=== PATIENT | female | born 1970 | race Caucasian/White ===

== ENCOUNTER 2021-11-25 14:04 | Outpatient (REF) | payer OTHER, SELFPAY ==
[2021-11-25 15:07] LABS: Influenza A PCR NEGATIVE (Negative); Influenza B PCR NEGATIVE (Negative); Resp Syncy Virus RNA Qual PCR NEGATIVE (Negative); SARS COV2 PCR INHOUSE NEGATIVE (Negative)
== END 2021-11-25 14:05 | disposition home or self-care (01) ==
LOC: HO.LNP 14:04
PROVIDERS: Visit Provider Nurse Practitioner Family
DX: Z20.822 Contact with and (suspected) exposure to COVID-19 (principal)
CPT/HCPCS: 0241U

== ENCOUNTER 2021-12-10 14:48 | Outpatient (REF) | payer OTHER, SELFPAY ==
--- NOTE | ~2021-12-10 | XR_ITS ---
EXAMINATION: XR LUMBOSACRAL SPINE CLINICAL INFORMATION: Right-sided sciatica. COMPARISON: None TECHNIQUE: Three views of the lumbosacral spine. FINDINGS: There is normal lumbar lordosis. The vertebral heights and alignment is normal. There is loss of L4-L5 and L5/S1 disc heights. Rest the disc heights are normal. No visible acute fracture, dislocation or lytic process seen. The paravertebral soft tissues are normal. The SI joints are symmetric and normal. XR/XR lumbar spine 2-3V IMPRESSION: Mild degenerative disc changes L4-L5 and L5-S1 disc levels. No visible acute fracture or dislocation seen.
== END 2021-12-10 14:49 | disposition home or self-care (01) ==
LOC: HO.HMGCLDS 14:48
PROVIDERS: PCP Family Medicine; Visit Provider Orthopaedic Surgery Sports Medicine
DX: M54.31 Sciatica, right side (principal)
CPT/HCPCS: 72100

== ENCOUNTER 2021-12-20 11:19 | Outpatient (REF) | payer OTHER, SELFPAY ==
[2021-12-20 14:20] LABS: Alanine Aminotransferase 22 U/L (0-31); Albumin Level 4.4 g/dL (3.5-5.0); Alkaline Phosphatase 75 U/L (39-117); Anion Gap 14 (12-20); Aspartate Amino Transferase 24 U/L (5-31); Bilirubin Total 1.2 mg/dL (0.0-1.0); Blood Urea Nitrogen 12 mg/dL (9-16); Calcium 9.5 mg/dL (8.4-10.2); Carbon Dioxide 25 mmol/L (22-29); Chloride 105 mmol/L (96-108); Cholesterol 179 mg/dL; Estimated Glomerular Filt Rate 51; Glucose Fasting 82 mg/dL (60-99); HDL Cholesterol 49 mg/dL; LDL Cholesterol Calculated 111 mg/dl; Potassium 4.2 mmol/L (3.3-5.1); Sodium 140 mmol/L (135-145); Triglycerides 99 mg/dL
[2021-12-20 14:34] LABS: TSH reflex Free T4 1.43 uIU/mL (0.32-4.0)
== END 2021-12-20 11:20 | disposition home or self-care (01) ==
LOC: HO.WFDLDS 11:19
PROVIDERS: Visit Provider Family Medicine
DX: Z00.00 Encounter for general adult medical examination without abnormal findings (principal)
CPT/HCPCS: 36415; 80053; 80061; 84443

== ENCOUNTER 2022-01-04 14:51 | Outpatient (REF) | payer OTHER, SELFPAY ==
--- NOTE | ~2022-01-04 | MM_ITS ---
EXAMINATION: MM SCREENING DIGITAL BREAST TOMOSYNTHESIS, BILATERAL CLINICAL INFORMATION: Screening. Asymptomatic. Prior [id number] mammography currently unavailable. The lifetime risk of breast cancer based on the Tyrer-Cuzick Model is 19%. COMPARISON: None. TECHNIQUE: Digital breast tomosynthesis is performed in both the craniocaudal and mediolateral oblique views along with computer-aided detection (CAD). Synthesized 2D images are generated from the tomosynthesis. FINDINGS: There are scattered areas of fibroglandular density (ACR BI-RADS breast composition Category b). There are no significant masses, abnormal calcifications, or other abnormalities. The axilla and skin contours are unremarkable. Radiology department staff will attempt to retrieve prior [id number] mammography to allow for comparison in an addendum report. MM/MM tomosynthesis screening BI IMPRESSION: No mammographic evidence of malignancy. ASSESSMENT: BI-RADS 1: Negative RECOMMENDATION: 1. Routine annual mammography screening. 2. Radiology department staff will attempt to retrieve prior mrj-oi-[id number] mammography to allow for comparison in an addendum report. This patient's information was entered into a reminder system with a target due date for their next mammogram.
== END 2022-01-04 14:52 | disposition home or self-care (01) ==
LOC: HO.MAMMO 14:51
PROVIDERS: PCP Family Medicine; Visit Provider Family Medicine
DX: Z12.31 Encounter for screening mammogram for malignant neoplasm of breast (principal)
CPT/HCPCS: 77063; 77067

== ENCOUNTER 2022-10-04 11:21 | Outpatient (AMB) | payer OTHER, SELFPAY ==
--- NOTE | 2022-10-04 11:30 | MHC.PC.OV ---
Vital Signs 10/04/22 11:31 Height 5 ft 9.3 in Weight 176 lb 8 oz BMI 25.8 BP 118/74 Blood Pressure Location Lt brachial Position Sitting Respiration 12 Pulse 97 Pulse Source Pulse Oximeter Temp 97.8 F Temp Source Temporal Artery Scan Pulse Oximetry (%) 99 Oxygen Delivery Method Room Air Intake Visit Reasons: Sore throat Intake Note: Patient states that it has been almost 2 weeks since shes had the symptoms. Patient states that shes been experiencing ear pain, congestion in the nose, pressure around eyes, eye irritation, mild headaches. 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 Accompanied by: Self / Same As Patient Allergies No Known Allergies Allergy (Verified 10/04/22 11:53) Medication List - Last Reconciled 10/04/22 by Mandie Blanco CNP famotidine 20 mg PO DAILY hydroxyzine HCl 12.5 - 50 mg PO TID PRN lamotrigine 75 mg PO DAILY vilazodone 10 mg PO DAILY vilazodone 20 mg PO DAILY zolpidem 10 mg PO BEDTIME PRN Tobacco use date assessed: 10/04/22 Dental Screening Dental Screen Date: 10/04/22 Did you have a dental visit in the last 12 months?: Yes Did you have a dental problem in the last 6 months where you did not have access to dental care?: No Was dental information given to patient?: Patient has dentist HPI HPI Comments History of Present Illness Details 52-year-old female presents with complaints of sore throat. She reports associated bilat ear pain, pressure on the eyes, eye irritation, and mild generalized headaches. Her symptoms have been ongoing for the past 2 weeks. She denies fever, chills, body aches, fatigue, or weakness. She denies visual disturbances. 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 Current occupational exposures/hazards: No Cognitive needs: No Hearing needs: No Vision needs: No Review of Systems Const Details: Const Denies chills, Denies fatigue, Denies fever(s), Denies headache(s) and Denies weakness ENT Reports as per HPI Card Denies chest pain, Denies lightheadedness, Denies dyspnea and Denies other (Palpitations) Resp Denies cough, Denies dyspnea, Denies wheezing and Denies other ( shortness of breath) GI Denies abdominal pain, Denies melena, Denies hematochezia, Denies change in bowel habits, Denies dyspepsia and Denies nausea Denies hematuria and Denies dysuria Musc Denies abnormal gait, Denies myalgias, Denies arthralgias, Denies numbness and Denies tingling Skin/Breast Denies rash, Denies unusual bruising and Denies wounds Neuro Denies abnormal gait, Denies dizziness, Denies headache(s), Denies memory loss, Denies numbness, Denies Sensory deficit (Neuro), Denies tingling and Denies weakness Psych Denies anxiety and Denies depression Endo Denies fatigue Aller/Immun Denies wheezing Physical exam (Primary Care) Vital Signs: Last Vital Signs Temp 97.8 F 10/04/22 11:31 Pulse 97 10/04/22 11:31 Resp 12 10/04/22 11:31 BP 118/74 10/04/22 11:31 Pulse Ox 99 10/04/22 11:31 Oxygen Delivery Method Room Air 10/04/22 11:31 BMI result Body Mass Index 25.8 Tobacco/Smoking Status: Tobacco use Status Tobacco use date assessed 10/04/22 10/04/22 11:44 Patient Tobacco Use Status Never used Tobacco 10/04/22 11:44 e-Cigarette/Vaping Use Never Used 10/04/22 11:44 Const Other: General: no acute distress and well developed Nutritional Appearance: well nourished Orientation/consciousness: patient oriented x3 HENMT Head is normocephalic Left TM with effusion and mild erythema, normal ear canal. Right ear canal and TM is normal Nasal turbinates with significant erythema Oropharynx is moist with significant erythema, no patches or exudate, no tonsillar swelling Tender frontal and maxillary sinuses No auricular or cervical lymphadenopathy Eyes General: appearance normal, both eyes and all related structures Pupils: Equal, round and reactive pupils present EOM: EOMs intact bilaterally Resp Effort & Inspection: normal respiratory effort Auscultation: clear to auscultation bilaterally Cardio Rate: regular rate Rhythm: regular rhythm Heart sounds: S1 normal heart sound present, S2 normal heart sound present, no gallops, no murmurs and no rubs GI Palpation (GI): No Abdominal aortic bruit present, Soft to palpation, nontender, No hepatosplenomegaly present and No Rebound tenderness present Auscultation: normal bowel sounds General: Yes no CVA tenderness Back/Spine/Pelvis Back: no CVA tenderness Cervical Spine: cervical ROM normal and No Cervical spine tenderness Thoracic/Lumbar Spine: thoraco-lumbar ROM normal, No pain with thoraco-lumbar ROM, No thoracic spinal tenderness and No lumbar spinal tenderness Extrem General: Yes normal to inspection, No edema and No calf tenderness Skin General: warm and dry. Normal skin color. Normal skin turgor Lesions: no lesions Rashes: no rashes Trauma: no lacerations or abrasions Wounds: no wounds Nails: normal Neuro General: patient oriented x3, gait normal and no focal neuro deficit Cranial nerves: Yes Equal, round and reactive pupils present Cognition (Neuro): normal cognition Gait exam (Neuro): Normal gait present Sensory Exam: No Sensory deficit (Neuro) Psych Affect: normal affect Assessment and Plan Assessment & Plan (1) Left otitis media with effusion: Code(s): H65.92 - Unspecified nonsuppurative otitis media, left ear Plan: Left TM with effusion and mild erythema Amoxicillin ordered. Take as prescribed May take Tylenol ibuprofen for pain, fever, or discomfort Adequate hydration encouraged Follow-up with worsening or new symptoms Verbalized understanding and agreed with treatment plan. (2) Acute sinus infection: Code(s): J01.90 - Acute sinusitis, unspecified Plan: Tender frontal and maxillary sinuses Plan as above (3) Acute pharyngitis: Code(s): J02.9 - Acute pharyngitis, unspecified Plan: Rapid strep test is negative Oropharynx is moist with significant erythema, no patches or exudate, no tonsillar swelling Adequate hydration encouraged May take Tylenol or Motrin for pain or discomfort Follow-up with worsening or new symptoms Verbalized understanding and agreed with treatment plan Orders: Orders AMB Rapid Strep Screen Today Z13.9 - Encounter for screening, unspecified Medications: New amoxicillin 875 mg PO Q12H 7 days 14 tabs 0RF Coding Level of Care Code Est Pt Level 3 (08377) Diagnoses Left otitis media with effusion H65.92 Acute sinus infection J01.90 Acute pharyngitis J02.9 Time Spent (min) 25
[2022-10-04 11:31] VITALS: BP 118/74; PULSE 97; RESP 12; TEMP 36.6; O2SAT 99; BMI 25.8
== END 2022-10-04 12:14 | disposition home or self-care (01) ==
PROVIDERS: PCP Family Medicine; Visit Provider Family Medicine
DX: H65.92 Unspecified nonsuppurative otitis media, left ear (principal); J01.90 Acute sinusitis, unspecified; J02.9 Acute pharyngitis, unspecified
CPT/HCPCS: 87880; 99213

== ENCOUNTER → 2023-08-31 08:00 | Outpatient (BNV) | payer OTHER, SELFPAY | PROVIDERS: Visit Provider Psychiatry & Neurology Psychiatry | DX: F43.10 Post-traumatic stress disorder, unspecified (principal); F39 Unspecified mood [affective] disorder; E22.1 Hyperprolactinemia | CPT/HCPCS: 90792; 99213; 99214 ==

== ENCOUNTER 2023-09-03 09:33 | Outpatient (REF) | payer OTHER, SELFPAY ==
[2023-09-03 10:09] LABS: MANUAL DIFF FLAG NO
--- NOTE | 2023-09-03 10:16 | ECG_ITS ---
Test Reason : F33.2 F41.0 N95.1 R/O QTC FOR MED CONSIDERATIONS Blood Pressure : / mmHG Vent. Rate : 075 BPM Atrial Rate : 075 BPM P-R Int : 162 ms QRS Dur : 080 ms QT Int : 378 ms P-R-T Axes : 072 068 052 degrees QTc Int : 422 ms Poor data quality, interpretation may be adversely affected Normal sinus rhythm Normal ECG No previous ECGs available Referred By: Amaya Alva Electronically Signed By:INDU ESPARZA MD
[2023-09-03 11:04] LABS: Basophils Absolute Auto 0.1 X10*3/uL (0.0-0.2); Basophils Percent Auto 0.9 % (0-2); Eosinophils Absolute Auto 0.2 X10*3/uL (0.0-0.4); Eosinophils Percent Auto 2.4 % (0-4); Hematocrit 41.9 % (37.0-47.0); Hemoglobin 13.7 g/dl (12.0-16.0); Imm Gran Abs Auto 0.02 X10*3/uL (0.00-0.03); Imm Gran Pct Auto 0.3 % (0.0-0.4); Lymphocytes Percent Auto 27.1 % (20-40); Mean Corpuscular HGB Conc 32.7 g/dl (31.0-35.0); Mean Corpuscular Hemoglobin 28.1 pg (27.0-33.0); Mean Corpuscular Volume 85.9 fL (80.0-98.0); Mean Platelet Volume 11.1 fL (9.4-12.3); Monocytes Absolute Auto 0.5 X10*3/uL (0.1-1.2); Monocytes Percent Auto 7.3 % (2-11); Neutrophils Absolute Auto 4.6 x10*3/uL (2.0-8.3); Platelet Count 252 X10*3/uL (160-400); Red Blood Count 4.88 X10*6/uL (4.20-5.50); Red Cell Distribution Width 12.5 % (11.0-16.0); White Blood Count 7.4 X10*3/uL (4.8-10.8)
[2023-09-03 11:16] LABS: Estimated Average Glucose 100 mg/dL; Hemoglobin A1c % 5.1 % (<6.0)
[2023-09-03 11:21] LABS: Lithium 0.64 mmol/L (0.60-1.20)
[2023-09-03 11:39] LABS: Parathyroid Hormone Intact 36.8 pg/mL (8.7-77.1)
[2023-09-03 11:41] LABS: Erythrocyte Sedimentation Rate 7 MM/HR (0-20)
[2023-09-03 11:54] LABS: Alanine Aminotransferase 49 U/L (0-31); Alkaline Phosphatase 95 U/L (39-117); Anion Gap 15 (12-20); Aspartate Amino Transferase 29 U/L (5-31); Bilirubin Total 0.7 mg/dL (0.0-1.0); Blood Urea Nitrogen 14 mg/dL (9-16); C Reactive Protein 0.48 mg/dL (< or = 0.50); Calcium 9.4 mg/dL (8.4-10.2); Carbon Dioxide 28 mmol/L (22-29); Chloride 103 mmol/L (96-108); Cholesterol 172 mg/dL (<200); Estimated Glomerular Filt Rate 58; Glucose Fasting 92 mg/dL (60-99); HDL Cholesterol 41 mg/dL (>40); Iron 93 mcg/dL (30-160); LDL Cholesterol Calculated 105 mg/dL (<100); Magnesium 2.1 mg/dL (1.6-2.6); Percent Iron Saturation 33 % (15-50); Phosphorus 3.8 mg/dL (2.7-4.5); Potassium 4.2 mmol/L (3.3-5.1); Sodium 142 mmol/L (135-145); Total Iron Binding Capacity 283 mcg/dL (228-428); Total Protein 6.8 g/dL (6.5-8.0); Triglycerides 134 mg/dL (<150); Unsaturated Iron Binding 190 ug/dL
[2023-09-03 12:01] LABS: Ferritin 68 ng/mL (10-250); Free T4 (Free Thyroxine) 0.84 ng/dL (0.71-1.85); Thyroid Stimulating Hormone 1.45 uIU/mL (0.32-4.0); Vitamin D 25-OH Total 36.7 ng/mL (>30)
[2023-09-03 12:07] LABS: Folate 10.1 ng/mL (> or = 4.0); Vitamin B12 461 pg/mL (200-900)
[2023-09-04 11:08] LABS: Thyroglobulin Antibodies <1 IU/mL (< or = 1); Thyroid Peroxidase Antibodies <1 IU/mL (<9)
[2023-09-04 22:59] LABS: Triiodothyronine T3 Total 94 ng/dL (76-181)
[2023-09-04 23:08] LABS: DHEA Sulfate 127 mcg/dL (5-167); Follicle Stimulating Hormone 83.4 mIU/mL; Lutenizing Hormone 35.1 mIU/mL; Prolactin 62.9 ng/mL
[2023-09-07 15:18] LABS: Anti Nuclear Antibody Screen NEGATIVE (NEGATIVE)
[2023-09-07 16:29] LABS: Triiodothyronine T3 Reverse 11 ng/dL (8-25)
[2023-09-08 19:34] LABS: Pregnenolone, LC/MS 33 ng/dL (22-237)
[2023-09-10 18:59] LABS: Progesterone <0.1 ng/mL
[2023-09-11 02:58] LABS: Estradiol Ultra Sensitive 5 pg/mL
[2023-09-14 14:18] LABS: Testosterone, Free 0.7 pg/mL (0.1-6.4); Testosterone, Total 13 ng/dL (2-45)
== END 2023-09-03 09:34 | disposition home or self-care (01) ==
LOC: HO.LAB 09:33
PROVIDERS: PCP Family Medicine; Visit Provider Psychiatry & Neurology Psychiatry
DX: Z13.6 Encounter for screening for cardiovascular disorders (principal); F33.2 Major depressive disorder, recurrent severe without psychotic features; F41.0 Panic disorder [episodic paroxysmal anxiety]; N95.1 Menopausal and female climacteric states
CPT/HCPCS: 36415; 80053; 80061; 80178; 82306; 82607; 82627; 82670; 82728; 82746; 83001; 83002; 83036; 83540; 83735; 83970; 84100; 84143; 84144; 84146; 84402; 84403; 84439; 84443; 84480; 84481; 84482; 85025; 85652; 86038; 86140; 86376; 86800; 93005

== ENCOUNTER → 2023-09-03 10:16 | Outpatient (BNV) | payer OTHER, SELFPAY | PROVIDERS: PCP Family Medicine; Visit Provider Internal Medicine Cardiovascular Disease | DX: F41.0 Panic disorder [episodic paroxysmal anxiety] (principal); F33.2 Major depressive disorder, recurrent severe without psychotic features | CPT/HCPCS: 93010 ==

== ENCOUNTER → 2023-09-12 08:30 | Outpatient (BNV) | payer OTHER, SELFPAY | PROVIDERS: Visit Provider Psychiatry & Neurology Psychiatry | DX: F43.10 Post-traumatic stress disorder, unspecified (principal); F39 Unspecified mood [affective] disorder; E22.1 Hyperprolactinemia | CPT/HCPCS: 90834; 99214 ==

== ENCOUNTER 2023-09-19 08:00 | Outpatient (RCR) | payer OTHER, SELFPAY ==
[2023-08-30 09:32] VITALS: BMI 26.3
[2023-08-30 09:35] VITALS: BP 114/70; PULSE 96; TEMP 36.8
--- NOTE | 2023-08-30 14:09 | PC.ADMIT ---
Patient is a 53 year old female who was referred to PHP by her TMS provider d/t increased depression with passive SI. 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 Patient denied any plans to do this or any intention of acting on her thoughts. She denied any history of suicide attempts or Inpatient LOC. Asked what stops her from acting on her thoughts and she stated, The hope that I can find something find the right med and plug myself in. Thoughts that I have recovered before and can recover again . Patient also stated she does not want to do that to her . I asked patient if we could call he and ask him to lock up her medications and administer them to her as a precaution and she agreed. I called her Elton and he agreed to lock up the medication and administer them to her as a safety precaution until she is feeling better. Patient reports stresses include feeling isolated since moving to [facility] from [place] a few years ago. She does not know anyone in the area and has no supports other that her . 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 When she is not working she is laying down on the couch on her phone doing nothing. She stated she wants to find something to do such as volunteer work to keep herself busy. Patient has a trauma history. See Integrative Assessment for more information. Patient currently is alert and oriented x4. She is calm and cooperative. She presents with depressed mood and tearful affect at times when talking about things related to children as she does not have any children. She feels she has no purpose in life. She was given a copy of her safety plan if needed. She reports she remembers feeling the way she does now when she moved to [place]. She eventually saw improvement with her mood after living in [place] for a while. Patient has tried many different medications however could not tolerate many of them d/t side effects. Medications reconciled with patient, Handle behavioral health paperwork and patient's pharmacy. Patient reports taking medications as prescribed.
--- NOTE | 2023-08-30 17:46 | HO.PHP ---
Client's case has been opened and reviewed in team meeting.
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
--- NOTE | 2023-09-05 14:39 | PC.NURSE ---
Odalis reported feeling Groggy, Nida Mera notified, Odalis was asked if Guanfacine was the medication making her Groggy, she stated Yes, per Dr. Alva Odalis was informed to hold off taking it in the morning, until doctor meets with her tomorrow. Odalis verbalized understanding.
--- NOTE | 2023-09-06 21:51 | P.PNPSP_ITS ---
Subjective Subjective Date of Service: 09/06/23 Reason For Visit: MDD,JOSE,PTSD Interim History: Feeling generally groggy, anxious and depressed. I'm fighting to get through the day Tried olanzapine at different times (was taking in the AM, has tried taking for a few days in the afternoon, and at night). She says she can definitively say it's doing nothing for me . Sleep continues to be difficult, with Ambien she falls asleep easily but is still waking occasionally during the night - without Ambien she is often unable to fall back asleep. She is still tired in the morning regardless of whether she takes the Ambien. She has not noticed any difference with the prazosin at night. Heart rate tends to be elevated, anxious night and day, she continues to endorse a fine tremor. She notices that the guanfacine during the day has some modest effect on the tremor, physically she is calmer, and less shaky not as bad as before , but feels the guanfacine is causing her to feel extremely sleepy during the day and does not feel it's been improving. Sometimes she is able to power through the tiredness, but often feels she is dragging very low energy . Energy has been low for months, but especially low in the past 1-2 months she just lays on the couch for hours, unable to tend to ADLs. Paradoxically she also feels more keyed up , shaky, increased heart rate/racing heart, with elevated HR (according to her watch), which persist at some level all the time, with bursts of anxiety, racing heartbeat, feels borderline panicky, but there is not always a clear indicator or cause. Denies any nicotine or caffeine use. Sleep disturbance at night is difficult to deal with and has been a constant problem. She denies any environmental factors that might be interfering with sleep. Endorses feeling a little hot at night, but this is not too bad. Potentially some flushing but no clear hot flashes. Denies any fever, sweats or chills. 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 She has experienced more rapid weight gain in the past month or so. Looking back she does feel she has had lower energy than the average person her age on and off over the past years. She noted feeling similarly in HS. She chalked it up to PTSD though. 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 She denies dx of fibromylagia or CFS> She admits she has not spoken to her PCP about this. She can not recall her LMP on account of previously being on oral contraception for many years; in fact she has not had a period perhaps as far back as her late 30s when she was started on Lo Loestrin. She was only recently discontinued from it. Mostly because she asked her doctor if she needed it and the doctor told her she could just stop it, which she proceeded to do back on July 21. She is eager to discontinue the olanzapine seeing as it is weight gaining, and does not appear to be helping. She also feels no benefot from the lithium, dark thought and passive SI persist with no improvement since being on lithium. She was stable for years on Lamictal and lithium combo, and perhaps it was the Lamictal that was helpful. However she is also not eager to wait several weeks to feel any relief. She has been on Wellbutrin in the past and believes this may have been helpful. She is less clear about Abilify and Latuda, although after calling her pharmacy, it does seem she was started on Abilify last year x 2 mos, however the dose was not further titrated. She denies any adverse effects that she can recall and believes that the medication was switched bc her provider felt it was not working. (She also notes that her provider has a habit of starting and quickly stopping medications and often did not try increasing the dose, and had a large number of medication changes over a short duration of time last year). We discussed plan to cross taper off of olanzapine and lithium and transition onto Wellbutrin and ABilify (perhaps addition of Lamictal if she is unable to tolerate those medications). We may need to be very judicious with Wellbutrin titration as not to exacerbate anxiety and what appears to be vasomotor symptoms which appear to be perimenopausal/menopausal and possibly, more acutely, related to being in estrogen withdrawal due to sudden cessation of OCP. We agree to check on her thyroid function lab work, and given there are no findings we discussed starting HRT at the lowest dose to see if this alleviates vasomotor symptoms, elevated HR, insomnia, (?and perhaps asso anxiety, mood changes) Medication Compliance: Yes Side effects from medications: Yes Attending Groups: Yes Review of Systems Acute medical concerns: No Mental Status Exam Mental Status Exam Narrative: Alert, oriented, in no acute distress. Anxious, minimally groomed, otherwise cooperative, engaged. Demonstrates a fine tremor bilaterally when holding up her hands. Eye contact maintained. Mood depressed, affect depressed, constricted. Speech normal. Thought process linear, coherent. Thought content related to stressors, endorses hopelessness, passive SI with intention, urge or plan to harm self or others. Denies any anger, aggressive ideation or HI. No paranoia or delusional content elicited. No evidence of psychosis. Insight and judgment - fair but adequate. Diagnostics Vital Signs (24Hr): BMI result Body Mass Index 26.3 Assessment & Plan Assessment & Plan (1) Other specified episodic mood disorder: Status: Acute Code(s): F39 - Unspecified mood [affective] disorder (2) PTSD (post-traumatic stress disorder): Status: Acute Code(s): F43.10 - Post-traumatic stress disorder, unspecified Plan start WB SR 100 mg qam (will start at just 50 mg for now due to vasomotor sx) will hold guanfacine ER tomorrow morning to see if causing sedation take prazosin 2 mg qhs decrease lithium from 600 mg (split 300 mg BID) to 300 mg qhs (or split 150/150) start gabapentin 300 mg daily in evening to target anxiety/sleep, may repeat 300 mg hs if needed) start aripiprazole 2.5 mg qhs hold olanzapine Lo Loestrin suddenly stopped several weeks ago consider restarting low-dose HRT Routine lab work reviewed - pending remaining TFTs - if wnl, will focus on HRT EKG, routine for baseline QTc for medication considerations UDS as indicated MassPat reviewed Continue to monitor Patient educated on: diagnosis and medication risk/benefits Informed Consent: understands Reason for contiued partial hosp. stay Substantial Risk for: harm to self, inability to function, rapid decompensation and med/psych decompensation Certification I certify that partial hospital treatment is medically necessary due to the symptoms and problems resulting from the patient's mental illness and the failure to treat the patient at the partial hospital level of care would likely result in the patient requiring inpatient psychiatric care which could not be prevented at a less intensive level of care. Total time managing care of this patient today _30___ minutes. Discharge Plan Discharge Attending provider: Amaya Alva Medications: New prazosin 1 mg capsule 1 mg PO QPM Qty: 10 0RF guanfacine 1 mg tablet extended release 24 hr 1 mg PO DAILY Qty: 10 0RF bupropion HCl 100 mg tablet sustained-release 12 hr 100 mg PO QAM Qty: 14 0RF aripiprazole 5 mg tablet 5 mg PO BEDTIME Qty: 14 0RF Rx Instructions: start 1/2 tablet daily at bedtime for 2 days then increase to one tablet po daily at bedtime cholecalciferol (vitamin D3) [Vitamin D3] 125 mcg (5,000 unit) tablet 125 mcg PO DAILY Qty: 30 1RF gabapentin 300 mg capsule 300 mg PO TID PRN (Reason: as directed) Qty: 30 0RF estradiol 0.0375 mg/24 hr patch semiweekly 1 patch transdermal 2XW Qty: 8 0RF Rx Instructions: apply 1 patch for 3 days alternating with 1 patch for 4 days each week for 3 wks per 4-wk cycle progesterone micronized 100 mg capsule 100 mg PO QAM 21 Days Qty: 21 0RF Rx Instructions: off 7 days; repeat cycle No Action famotidine 20 mg tablet 20 mg PO DAILY 90 Days Qty: 90 3RF lithium carbonate 300 mg tablet extended release 300 mg PO BID olanzapine 2.5 mg tablet 1.25 mg PO DAILY Rx Instructions: Take 1/2 tab daily diazepam 5 mg tablet 5 mg PO BID PRN (Reason: Anxiety) zolpidem 10 mg tablet 10 mg PO BEDTIME PRN (Reason: Insomnia) hydroxyzine HCl 25 mg tablet 25 mg PO QID PRN (Reason: anxiety) Stand Alone Forms: Patient Portal Discharge page Patient Education: Depression (DC) Print Language: Jordanian
--- NOTE | 2023-09-07 23:59 | HO.PHPPROGNO ---
Subjective Subjective Date of Service: 09/07/23 Reason For Visit: MDD,JOSE,PTSD Interim History: Patient seen today to check in regarding a number of medication changes we are making in order to transition off the olanzapine and lithium and onto WEllbutrin, Abilify and guanfacine (or prazosin). As we discussed yesterday, will continue to cross taper off of olanzapine (which was stopped) and lithium (reduced from 600 mg to 300 mg/d) and transitioning onto Wellbutrin and Abilify. She did not take guanfacine this morning, instead she started on 1/2 tablet of Wellbutrin and cut lithium down to 150 mg. She notes feeling a little less groggy, but still very tired during the day. For now will continue at 50 mg and focus on sleep regime. Patient reports difficulties will sleep again last night. She held off taking the Ambien in order to try the gabapentin which she took at 300 mg around 7-8pm and then repeated a 300 mg after 9pm. Will plan to titrated to 600 mg. She started on Abilify 2.5 mg last night, denies any adverse effects, will continue for another night on 1/2 tablet and then can increase to one 5 mg tablet at night. She did not find the prazosin 2 mg helpful for sleep, does not struggle with nightmares, and still feeling keyed up, shaky, thready, and anxious throughout the night. Will plan to titrate Wellbutrin once patient is sleeping better. For now, we reviewed the rationale for moving up judiciously with Wellbutrin as not to exacerbate vasomotor symptoms (HR, anxiety) and will plan to start prazosin (since this appears to cause less sedation than the guanfacine) during the day with the Wellbutrin once we are moving up to the whole 100 mg tablet. Remaining TFTs completed and are wnl, so as discussed will plan to start transdermal estradiol and po progesterone at the lowest doses to see if this alleviates vasomotor symptoms, elevated HR, insomnia and any associated anxiety or mood dysregulation, which given recent history are likely related to being in estrogen withdrawal due to sudden stopping her control pill several weeks ago. This appears to correlate to worsening of symptoms of anxiety depression, insomnia. Mental Status Exam Mental Status Exam Narrative: Alert, oriented, in no acute distress. Anxious, minimally groomed, otherwise cooperative, engaged. Demonstrates a fine tremor bilaterally when holding up her hands. Eye contact maintained. Mood depressed, affect depressed, constricted. Speech normal. Thought process linear, coherent. Thought content related to stressors, endorses hopelessness, passive SI with intention, urge or plan to harm self or others. Denies any anger, aggressive ideation or HI. No paranoia or delusional content elicited. No evidence of psychosis. Insight and judgment - fair but adequate. Diagnostics Vital Signs (24Hr): BMI result Body Mass Index 26.3 Assessment & Plan Assessment & Plan (1) Other specified episodic mood disorder: Status: Acute Code(s): F39 - Unspecified mood [affective] disorder (2) PTSD (post-traumatic stress disorder): Status: Acute Code(s): F43.10 - Post-traumatic stress disorder, unspecified Plan continue WB SR 50 mg qam will increase to 100 mg qam once sleep improves (will start prazosin 1 mg QAM along with WB SR 100 mg prn (anxiety) discont prazosin at night and take guanfacine ER 1 mg in the evening/night increase gabapentin to 600 mg qhs, may take additional 300 mg for sleep continue lithium ER 300 mg/d continue aripiprazole 2.5 mg tonight and increase to 5 mg qhs over the weekend discont olanzapine 2.5 mg take only 1/4 tab - 1/2 tab of diazepam (5mg tab) qhs with plan to taper off continue zolpidem 5 mg qhs prn sleep Lo Loestrin suddenly stopped several weeks ago will restart low-dose HRT as estradiol 0.035 tranderm patch (applied twice a week)/ micronized progesterone 100 mg po qhs) Routine lab work findings reviewed with patient - pending remaining lab findings Continue to monitor Patient educated on: diagnosis, medication risk/benefits and substance abuse Informed Consent: understands Reason for contiued partial hosp. stay Substantial Risk for: inability to function, rapid decompensation and med/psych decompensation Certification I certify that partial hospital treatment is medically necessary due to the symptoms and problems resulting from the patient's mental illness and the failure to treat the patient at the partial hospital level of care would likely result in the patient requiring inpatient psychiatric care which could not be prevented at a less intensive level of care. Total time managing care of this patient today __30__ minutes. Discharge Plan Discharge Attending provider: Amaya Alva Medications: New prazosin 1 mg capsule 1 mg PO QPM Qty: 10 0RF guanfacine 1 mg tablet extended release 24 hr 1 mg PO DAILY Qty: 10 0RF bupropion HCl 100 mg tablet sustained-release 12 hr 100 mg PO QAM Qty: 14 0RF aripiprazole 5 mg tablet 5 mg PO BEDTIME Qty: 14 0RF Rx Instructions: start 1/2 tablet daily at bedtime for 2 days then increase to one tablet po daily at bedtime cholecalciferol (vitamin D3) [Vitamin D3] 125 mcg (5,000 unit) tablet 125 mcg PO DAILY Qty: 30 1RF gabapentin 300 mg capsule 300 mg PO TID PRN (Reason: as directed) Qty: 30 0RF estradiol 0.0375 mg/24 hr patch semiweekly 1 patch transdermal 2XW Qty: 8 0RF Rx Instructions: apply 1 patch for 3 days alternating with 1 patch for 4 days each week for 3 wks per 4-wk cycle progesterone micronized 100 mg capsule 100 mg PO QAM 21 Days Qty: 21 0RF Rx Instructions: off 7 days; repeat cycle No Action famotidine 20 mg tablet 20 mg PO DAILY 90 Days Qty: 90 3RF lithium carbonate 300 mg tablet extended release 300 mg PO BID olanzapine 2.5 mg tablet 1.25 mg PO DAILY Rx Instructions: Take 1/2 tab daily diazepam 5 mg tablet 5 mg PO BID PRN (Reason: Anxiety) zolpidem 10 mg tablet 10 mg PO BEDTIME PRN (Reason: Insomnia) hydroxyzine HCl 25 mg tablet 25 mg PO QID PRN (Reason: anxiety) Stand Alone Forms: Patient Portal Discharge page Patient Education: Depression (DC) Print Language: Tristanian
--- NOTE | 2023-09-12 11:27 | P.PNPSP_ITS ---
Subjective Subjective Date of Service: 09/12/23 Reason For Visit: MDD,JOSE,PTSD Guardianship: No Medical Problems Affecting Mental Status: Yes Interim History: The patient is seen in psychiatric follow-up at the [facility] program in coverage for Dr. Alva psychiatric provider at [facility]. 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 This has been complicated by a number of moves of the past couple of years from [place] to [place] and most recently to [facility]. She has felt more isolated. 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 Patient denies active thoughts of self-harm but is anxious and dysphoric. She does describe history of what appears to be hypo manic symptoms with elevated mood states hyperactivity increase impulsivity and buying in which she feels like she is stimulated. She has been diagnosed with bipolar to in the past Since being at the [facility] number of medication changes have been made. She has been tapering off lithium olanzapine has been discontinued she is on Abilify 5 mg taking prazosin at bedtime did not like how she felt on guanfacine. She is on up to 6-900 mg of gabapentin a day which so for has reportedly not been helpful. Has problems falling and staying asleep zolpidem has been helpful in the past. She does have some difficulty sleep habits such as lying in bed waiting up to 2 hours to fall asleep. She has been started on Wellbutrin currently at 50 mg daily she was in the past stable on lamotrigine and lithium in combination. [facility] Medication Compliance: Yes Attending Groups: Yes Review of Systems Elevated prolactin noted Mental Status Exam Mental Status Exam Narrative: Alert, oriented, anxious in appearance. Anxious, minimally groomed, otherwise cooperative, engaged good eye contact. Mood depressed anxious, affect depresse d, constricted. Speech normal. Thought process linear, coherent. Thought content related to stressors, endorses hopelessness, passive SI with intention, no urge or plan to harm self or others. Denies any anger, aggressive ideation or HI. No paranoia or delusional content elicited. No evidence of psychosis. Insight and judgment - fair but adequate. She does need much reassurance did have a number of questions regarding bipolar 2 Diagnostics Vital Signs (24Hr): BMI result Body Mass Index 26.3 Assessment & Plan Assessment & Plan (1) PTSD (post-traumatic stress disorder): Status: Acute Code(s): F43.10 - Post-traumatic stress disorder, unspecified (2) Other specified episodic mood disorder: Status: Acute Code(s): F39 - Unspecified mood [affective] disorder (3) Hyperprolactinemia: Status: Acute Code(s): E22.1 - Hyperprolactinemia Plan Patient to this point has not had significant improvement. Difficulty falling and staying asleep we did discuss not going to bed until feeling tired use of yoga nidra and not to stay in bed for extended periods without sleeping. Patient is anxious with some degree of racing thoughts not hyperkinetic it given literature regarding bipolar 2 and did review other treatment options which could include restarting lamotrigine an aiming for higher therapeutic levels use of mirtazapine at bedtime and Latuda Vraylar caplyta . Currently patient will be new Wellbutrin gabapentin prazosin at HS. Agitated depression with PTSD versus bipolar 2 with PTSD Please note elevated prolactin level in the 60s can be due to antipsychotics no nipple discharge would repeat generally not overly elevated on Abilify no galactorrhea noted repeat next week Patient educated on: diagnosis, medication risk/benefits and medical condition Informed Consent: understands Reason for contiued partial hosp. stay Substantial Risk for: harm to self and rapid decompensation Certification I certify that partial hospital treatment is medically necessary due to the symptoms and problems resulting from the patient's mental illness and the failu re to treat the patient at the partial hospital level of care would likely result in the patient requiring inpatient psychiatric care which could not be prevented at a less intensive level of care. Total time managing care of this patient today __40__ minutes. Discharge Plan Discharge Attending provider: Amaya Alva Medications: New prazosin 1 mg capsule 1 mg PO QPM Qty: 10 0RF bupropion HCl 100 mg tablet sustained-release 12 hr 100 mg PO QAM Qty: 14 0RF aripiprazole 5 mg tablet 5 mg PO BEDTIME Qty: 14 0RF Rx Instructions: start 1/2 tablet daily at bedtime for 2 days then increase to one tablet po daily at bedtime cholecalciferol (vitamin D3) [Vitamin D3] 125 mcg (5,000 unit) tablet 125 mcg PO DAILY Qty: 30 1RF gabapentin 300 mg capsule 300 mg PO TID PRN (Reason: as directed) Qty: 30 0RF estradiol 0.0375 mg/24 hr patch semiweekly 1 patch transdermal 2XW Qty: 8 0RF Rx Instructions: apply 1 patch for 3 days alternating with 1 patch for 4 days each week for 3 wks per 4-wk cycle progesterone micronized 100 mg capsule 100 mg PO QAM 21 Days Qty: 21 0RF Rx Instructions: off 7 days; repeat cycle prazosin 1 mg capsule 1 mg PO DAILY Qty: 10 0RF Continued lithium carbonate 300 mg tablet extended release 300 mg PO BID olanzapine 2.5 mg tablet 1.25 mg PO DAILY Rx Instructions: Take 1/2 tab daily No Action famotidine 20 mg tablet 20 mg PO DAILY 90 Days Qty: 90 3RF diazepam 5 mg tablet 5 mg PO BID PRN (Reason: Anxiety) zolpidem 10 mg tablet 10 mg PO BEDTIME PRN (Reason: Insomnia) hydroxyzine HCl 25 mg tablet 25 mg PO QID PRN (Reason: anxiety) Stand Alone Forms: Patient Portal Discharge page Patient Education: Depression (DC) Print Language: Croatian
--- NOTE | 2023-09-18 22:21 | P.PNPSP_ITS ---
Subjective Subjective Date of Service: 09/18/23 Reason For Visit: MDD,JOSE,PTSD Interim History: Patient seen for follow-up, anticipating discharge at the end of program today.? Reports no acute issues or concerns. Medication compliant, medications well- tolerated. Denies any adverse effects.?She is due to increase Lamictal to 100 mg on 09/19. Is falling asleep more easily but still working on sleep. Sometimes lingers in bed due to feeling unrested, but trying to stay active more than she had been. She has found the Wellbutrin was making her jittery and did not realize that the guanfacine should be taken in the morning to help with anxiety or overactivating effects of buproprion which she agrees to do. Mood is still low, but depression less severe. A few flickers of SI last week, mostly not an issue . ? Denies any current hopelessness or SI. Denies thoughts of harming self or others at this time. Denies any aggressive ideation or HI. Denies any paranoia or AH or VH. Sleep, appetite, energy stable. Medication Compliance: Yes Side effects from medications: No Attending Groups: Yes Review of Systems Acute medical concerns: No Mental Status Exam Mental Status Exam Narrative: Alert, oriented. Mood less depressed, anxious, affect constricted. Speech norm al. Thought process linear, coherent. Thought content related to stressors, transient hopelessness, denies suicidal intention, urge or plan to harm self or others. No paranoia or delusional content elicited. Insight and judgment - fair but adequate. Diagnostics Vital Signs (24Hr): BMI result Body Mass Index 26.3 Assessment & Plan Assessment & Plan (1) PTSD (post-traumatic stress disorder): Status: Acute Code(s): F43.10 - Post-traumatic stress disorder, unspecified (2) Other specified episodic mood disorder: Status: Acute Code(s): F39 - Unspecified mood [affective] disorder (3) Hyperprolactinemia: Status: Acute Code(s): E22.1 - Hyperprolactinemia Plan Discharge from [facility] Continue regular medications Refills sent to pharmacy Will defer further medication management to outpatient provider *Safety plan reviewed *Discharge diagnoses, treatment course, discharge plan have been reviewed with patient (including medication regime, medication management, potential side effects) as well as treatment rationale were also revisited *Discharge paperwork signed and given to patient, copy sent for scanning to chart Patient educated on: diagnosis, medication risk/benefits and medical condition Informed Consent: understands Reason for contiued partial hosp. stay Substantial Risk for: stable for discharge and med/psych decompensation Certification I certify that partial hospital treatment is medically necessary due to the symptoms and problems resulting from the patient's mental illness and the failure to treat the patient at the partial hospital level of care would likely result in the patient requiring inpatient psychiatric care which could not be prevented at a less intensive level of care. Total time managing care of this patient today __30__ minutes. Discharge Plan Discharge Attending provider: Amaya Alva Medications: New bupropion HCl 100 mg tablet sustained-release 12 hr 100 mg PO QAM Qty: 14 0RF aripiprazole 5 mg tablet 5 mg PO BEDTIME Qty: 14 0RF Rx Instructions: start 1/2 tablet daily at bedtime for 2 days then increase to one tablet po daily at bedtime cholecalciferol (vitamin D3) [Vitamin D3] 125 mcg (5,000 unit) tablet 125 mcg PO DAILY Qty: 30 1RF gabapentin 300 mg capsule 300 mg PO TID PRN (Reason: as directed) Qty: 30 0RF estradiol 0.0375 mg/24 hr patch semiweekly 1 patch transdermal 2XW Qty: 8 0RF Rx Instructions: apply 1 patch for 3 days alternating with 1 patch for 4 days each week for 3 wks per 4-wk cycle progesterone micronized 100 mg capsule 100 mg PO QAM 21 Days Qty: 21 0RF Rx Instructions: off 7 days; repeat cycle lamotrigine 25 mg tablet 25 mg PO DAILY Qty: 90 0RF Rx Instructions: take one tablet daily for 2 weeks, then increase to 2 tablets daily for 2 weeks, then increase to 3 tablets daily clonazepam 0.5 mg tablet 0.5 mg PO DAILY Qty: 8 0RF guanfacine 1 mg tablet extended release 24 hr 1 - 2 mg PO QPM Qty: 30 0RF Continued famotidine 20 mg tablet 20 mg PO DAILY 90 Days Qty: 90 3RF lithium carbonate 300 mg tablet extended release 300 mg PO BID hydroxyzine HCl 25 mg tablet 25 mg PO QID PRN (Reason: anxiety) Changed prazosin 1 mg capsule 1 - 2 mg PO DAILY Qty: 20 0RF Discontinued olanzapine 2.5 mg tablet 1.25 mg PO DAILY Rx Instructions: Take 1/2 tab daily diazepam 5 mg tablet 5 mg PO BID PRN (Reason: Anxiety) zolpidem 10 mg tablet 10 mg PO BEDTIME PRN (Reason: Insomnia) Stand Alone Forms: Patient Portal Discharge page Patient Education: Depression (DC) Print Language: Divehi
== END 2023-09-19 23:59 | disposition home or self-care (01) ==
LOC: HO.PHPA 08:00
PROVIDERS: Visit Provider Psychiatry & Neurology Psychiatry
DX: F39 Unspecified mood [affective] disorder (principal); F43.10 Post-traumatic stress disorder, unspecified; E22.1 Hyperprolactinemia; Z79.899 Other long term (current) drug therapy
CPT/HCPCS: 90791; 90853

== ENCOUNTER 2024-01-03 13:03 | Outpatient (AMB) | payer OTHER, SELFPAY ==
--- NOTE | 2024-01-03 13:20 | MHC.PC.OV ---
Vital Signs 01/03/24 13:28 Height 5 ft 9.3 in Weight 193 lb 4 oz BMI 28.3 BP 110/64 Blood Pressure Location Lt brachial Position Sitting Respiration 16 Pulse 87 Pulse Source Pulse Oximeter Temp 97.9 F Temp Source Temporal Artery Scan Pulse Oximetry (%) 97 Oxygen Delivery Method Room Air Intake Visit Reasons: evaluation of heart murmur and CPE Intake Note: cpe Is last menstrual period known: No Post menopausal: Yes Patient : No Allergies codeine Allergy (Verified 01/03/24 13:21) Vomiting Tobacco use date assessed: 01/03/24 Dental Screening Dental Screen Date: 01/03/24 Did you have a dental visit in the last 12 months?: Yes Did you have a dental problem in the last 6 months where you did not have access to dental care?: No Was dental information given to patient?: Patient has dentist HPI evaluation of heart murmur and CPE HPI Details 53 y/o female presents for a CPE with f/u labs and health maintenance. Labs drawn 09/03/23. Reviewed labs with pt. Triglycerides 134. TC 172. LDL 105. HDL 41. Followed by a psychiatrist for her mood. She continues to get exercise. [facility] Medical History (Updated 01/03/24 @ 13:54 by Wayne Kennedy MD) GERD (gastroesophageal reflux disease) Surgical History (Updated 08/30/23 @ 15:30 by Ella Dixon RN) History of left oophorectomy History of hip surgery History of ankle surgery Family History Other Mental health disorder Substance abuse Social History (Updated 01/03/24 @ 13:20 by CASSIDY Barcenas) Household Members: Spouse and Other Household Members Other:: My Cat Housing: House Comment: Pt's d/c date will be extended, TBD. 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 1. Little interest or pleasure in doing things: several days 2. Feeling down, depressed, or hopeless: several days 3. Trouble falling or staying asleep, or sleeping too much: several days 4. Feeling tired or having little energy: several days 5. Poor appetite or overeating: several days 6. Feeling bad about yourself - or that you are a failure or have let yourself or your family down: several days 7. Trouble concentrating on things, such as reading the newspaper or watching television: several days 8. Moving or speaking so slowly that other people could have noticed. Or the opposite - being so fidgety or restless that you have been moving around a lot more than usual: not at all 9. Thoughts that you would be better off or of hurting yourself in some way: not at all Total score: 7 Depression Screening Interpretation: Positive Depression Screening Done: Yes [id number] - PHQ-9 Billing: Yes Source: Developed by Drs. Ky Charles, Laly Arredondo, Christopher Rob and colleagues, with an educational suyapa from [employer]. Thrive Questionnaire Date Thrive assessed: 01/03/24 I am a: Patient What is your living situation today?: I have a steady place to live Within the past 12 months, did the food you bought not last and you didn't have the money to get more?: Never true Within the past 12 months, did you worry whether your food would run out before you got money to buy more?: Never true Do you have trouble paying for medicines?: No Do you have trouble getting transportation to medical appointments?: No Do you have trouble paying your heating and electricity bill?: No Do you have trouble taking care of your child, family member or friend?: No Do you have trouble with day-to-day activities such as bathing, preparing meals, shopping, managing finances, etc.?: No Are you currently unemployed and looking for a job?: No Are you interested in more education?: Yes Please select the resources that you would like help with: None Currently or been in a relationship where the following occur: No concerns reported THRIVE Score: 0 AUDIT C Alcohol Use Questionnaire (AUDIT-C) 1. How often do you have a drink containing alcohol?: Monthly or less 2. How many drinks containing alcohol do you have on a typical day when you are drinking?: 1 or 2 3. How often do you have six or more drinks on one occasion?: Never Total Score: 1 JOSE-7 AMB Questionnaire JOSE-7 Date JOSE - 7 assessed: 01/03/24 Feeling nervous, anxious, or on edge: 1 = Several days Not being able to stop or control worryin = Several days Worrying too much about different things: 1 = Several days Trouble relaxin = Several days Being so restless that it is hard to sit still: 0 = Not at all Becoming easily annoyed or irritable: 0 = Not at all Feeling afraid as if something awful might happen: 1 = Several days Total JOSE-7 score (0-4 normal; 5-9 mild; 10-14 moderate; 15-21 severe): 5 Source: Developed by Drs. Ky Charles, Laly Arredondo, Christopher Rob and colleagues, with an educational suyapa from [employer]. JOSE-7 Assessment Billing JOSE-7 Assessment Tool: JOSE-7 Assessment 49015 Review of Systems Const Denies chills, Denies fatigue, Denies fever(s), Denies headache(s) and Denies weakness Eyes Denies change in vision ENT Denies dizziness, Denies headache(s), Denies hearing loss, Denies nasal congestion, Denies sinus pain, Denies sinus pressure and Denies sore throat Card Denies chest pain, Denies lightheadedness, Denies dyspnea and Denies other (palpitations) Resp Denies cough, Denies dyspnea and Denies wheezing GI Denies abdominal pain, Denies melena, Denies hematochezia, Denies change in bowel habits, Denies dyspepsia and Denies nausea Denies hematuria and Denies dysuria Musc Denies abnormal gait, Denies myalgias, Denies arthralgias, Denies numbness and Denies tingling Skin/Breast Denies rash, Denies unusual bruising and Denies wounds Neuro Denies abnormal gait, Denies dizziness, Denies headache(s), Denies memory loss, Denies numbness, Denies Sensory deficit (Neuro), Denies tingling and Denies weakness Psych Denies anxiety, Denies depression and Denies memory loss Endo Denies cold intolerance, Denies fatigue, Denies heat intolerance, Denies polydipsia and Denies polyuria Hemant/Lymph Denies easy bleeding and Denies easy bruising Aller/Immun Denies wheezing Physical exam (Primary Care) Vital Signs: Last Vital Signs Temp 97.9 F 01/03/24 13:28 Pulse 87 01/03/24 13:28 Resp 16 01/03/24 13:28 BP 110/64 01/03/24 13:28 Pulse Ox 97 01/03/24 13:28 Oxygen Delivery Method Room Air 01/03/24 13:28 BMI result Body Mass Index 28.3 Tobacco/Smoking Status: Tobacco use Status Tobacco use date assessed 01/03/24 01/03/24 13:30 Patient Tobacco Use Status Never used Tobacco 01/03/24 13:30 e-Cigarette/Vaping Use Never Used 01/03/24 13:30 PHQ-9: PHQ-9 Score PHQ-9: Total score 7 01/03/24 13:35 Depression Screening Interpretation: Positive Thrive Assessment: Date of Thrive Assessment Date Thrive assessed 01/03/24 01/03/24 13:30 Currently or been in a relationship where the following occur: No concerns reported Const General: no acute distress, well developed, alert and awake Nutritional Appearance: well nourished Orientation/consciousness: patient oriented x3 HENMT Head: Yes normocephalic and Yes atraumatic Ears: hearing grossly normal bilaterally and TM's normal bilaterally General nose exam: Normal external nose present and Normal nares present Mouth: Normal oral and palatal mucosa present and moist mucous membranes Teeth and gingiva: dentition normal Throat: Yes posterior oropharynx normal Eyes General: appearance normal, both eyes and all related structures Pupils: Equal, round and reactive pupils present and Pupil accommodation reflex normal EOM: EOMs intact bilaterally Neck Neck: Yes normal visual inspection, Yes no lymphadenopathy and Yes trachea midline Thyroid: Thyroid normal Carotids: no bruits Lymphatic: no lymphadenopathy noted Chest Chest palpation & inspection: normal inspection of the chest Resp Effort & Inspection: normal respiratory effort Auscultation: clear to auscultation bilaterally Cardio Rate: regular rate Rhythm: regular rhythm Heart sounds: S1 normal heart sound present, S2 normal heart sound present, no gallops, Murmur heart sound present (2/6 systolic murmur ) and no rubs Bruits: no abdominal aortic bruits and no carotid bruits GI Palpation (GI): No Abdominal aortic bruit present, Soft to palpation, nontender, No hepatosplenomegaly present and No Rebound tenderness present Auscultation: normal bowel sounds General: Yes no CVA tenderness Back/Spine/Pelvis Back: no CVA tenderness Cervical Spine: cervical ROM normal and No Cervical spine tenderness Thoracic/Lumbar Spine: thoraco-lumbar ROM normal, No pain with thoraco-lumbar ROM, No thoracic spinal tenderness and No lumbar spinal tenderness Skin Lesions: no lesions Rashes: no rashes Trauma: no lacerations or abrasions Wounds: no wounds Nails: normal Neuro General: patient oriented x3 Cranial nerves: Yes Equal, round and reactive pupils present Cognition (Neuro): normal cognition Gait exam (Neuro): Normal gait present Motor exam (neuro): 5/5 motor strength present throughout Sensory Exam: No Sensory deficit (Neuro) Deep tendon reflexes (DTR's): Right patellar reflex intensity grade: 2+ and Left patellar reflex intensity grade: 2+ Extrem General: Yes normal to inspection and No edema Psych Appearance: grossly normal Affect: normal affect Attitude: cooperative Thought process: Normal thought process present Coding Level of Care Code Est Pt Prev Care 40-64y(59096) Diagnoses Adult general medical examination Z00.00 Faint heart murmur R01.1 Depression with anxiety F41.8 Screening for colon cancer Z12.11 Screening for cervical cancer Z12.4 Breast cancer screening by mammogram Z12.31 Elevated LDL cholesterol level E78.00 Elevated liver enzymes R74.8 Additional Codes JOSE-7 Assessment Billing - JOSE-7 Assessment Tool: JOSE-7 Assessment 20108 ([id number]) Assessment & Plan Assessment & Plan (1) Adult general medical examination: Code(s): Z00.00 - Encounter for general adult medical examination without abnormal findings Category: Medical Plan: 53-year-old?female?presents?for?complete?physical?exam (2) Faint heart murmur: Code(s): R01.1 - Cardiac murmur, unspecified Category: Medical Plan: Heart?murmur?heard?on?physical?exam?at?last?visit.??She?has?never?had?workup?or?characterization?of?this Had?ordered?echocardiogram?but?she?has?not?gotten?this?done. Reordered?echocardiogram.??We?can?follow-up?on?this?at?next?visit (3) Depression with anxiety: Code(s): F41.8 - Other specified anxiety disorders Category: Medical Plan: Followed?by?psychiatry and?recent?attendance?to?partial?program?this?summer Stable Continue?current?medications (4) Screening for colon cancer: Code(s): Z12.11 - Encounter for screening for malignant neoplasm of colon Category: Medical Plan: Patient?says?she?had?a?colonoscopy?about?3?years?ago?was?told?to?follow-up?in?5?years Up-to-date (5) Screening for cervical cancer: Code(s): Z12.4 - Encounter for screening for malignant neoplasm of cervix Category: Medical Plan: Followed?by?[employer] And?had?recent?Pap?smear?which?she?says?was?negative Follow-up?with?[employer] merchant?as?recommended (6) Breast cancer screening by mammogram: Code(s): Z12.31 - Encounter for screening mammogram for malignant neoplasm of breast Category: Medical Plan: Patient?says?she?had?a?recent?mammogram.??Patient?says?this?was?normal Up-to-date Continue?annual?screening (7) Elevated LDL cholesterol level: Code(s): E78.00 - Pure hypercholesterolemia, unspecified Category: Medical Plan: Mild?elevation?in?LDL?cholesterol Encouraged?diet?low?in?saturated?fats?and?cholesterol?and?weight?loss (8) Elevated liver enzymes: Code(s): R74.8 - Abnormal levels of other serum enzymes Category: Medical Plan: Mild?elevation?in?liver?enzyme Encouraged?weight?loss Will?recheck?with?next?blood?draw Orders: Orders CA echo transthoracic complete Today R01.1 - Cardiac murmur, unspecified
[2024-01-03 13:28] VITALS: BP 110/64; PULSE 87; RESP 16; TEMP 36.6; O2SAT 97; BMI 28.3
== END 2024-01-03 13:50 | disposition home or self-care (01) ==
PROVIDERS: Visit Provider Family Medicine
DX: Z00.00 Encounter for general adult medical examination without abnormal findings (principal); R01.1 Cardiac murmur, unspecified; F41.8 Other specified anxiety disorders; Z12.11 Encounter for screening for malignant neoplasm of colon; Z12.4 Encounter for screening for malignant neoplasm of cervix; Z12.31 Encounter for screening mammogram for malignant neoplasm of breast; E78.00 Pure hypercholesterolemia, unspecified; R74.8 Abnormal levels of other serum enzymes

== ENCOUNTER → 2024-01-03 13:03 | Outpatient (BNVA) | payer OTHER, SELFPAY | PROVIDERS: Visit Provider Family Medicine | DX: Z00.00 Encounter for general adult medical examination without abnormal findings (principal); R01.1 Cardiac murmur, unspecified; F41.8 Other specified anxiety disorders; E78.00 Pure hypercholesterolemia, unspecified; R74.8 Abnormal levels of other serum enzymes | CPT/HCPCS: 96127 ==

== ENCOUNTER → 2024-01-30 13:58 | Outpatient (REF) | payer OTHER, SELFPAY ==
--- NOTE | 2024-01-30 14:02 | CA_ITS ---
Transthoracic Echocardiogram Patient (Last, First, Middle): Odalis Brown, Gender: Female Date of : 1970 Age: 53 Procedure Date: 01/30/2024 Procedure Type: Transthoracic Echocardiogram Location: OP Height: 175.26 cm Weight: 87.54 kg BSA: 2.03 m2 Heart Rate: 76 bpm BP: 110 / 64 mmHg Supervisor Offset Plate Preparation: SB Referring MD: Wayne Kennedy MD Test Carrier: Devan Joe MD Symptoms: R01.1 - Cardiac murmur, unspecified Study Quality: Adequate ECG Rhythm: Sinus Conclusions: - 1. Normal LV ejection fraction of 55-60% 2. Normal cardiac valvular Doppler 3. Mildly dilated ascending aorta at 3.7 cm 4. No gross pericardial effusion Findings Left Ventricle Normal left ventricular size, thickness, and systolic function. The visually estimated ejection fraction is between 55-60%. Spectral Doppler is indicative of a normal filling pattern. Right Ventricle Normal right ventricular cavity size and systolic function. Atria Both atria are normal in size. There is no evidence of interatrial shunt. Aortic Valve The aortic valve structure and function is likely normal. There is no aortic valve stenosis. There is no aortic valve regurgitation. Mitral Valve Normal mitral valve structure and function. There is trace mitral valve regurgitation. There is no mitral valve stenosis. Pulmonic Valve The pulmonic valve was not well visualized. Tricuspid Valve Likely normal tricuspid valve structure and function. Tricuspid regurgitation envelope is inadequate for calculation of right ventricular systolic pressure. Normal right atrial pressure. Great Vessels The pulmonary artery was not well visualized. There is mild dilatation of the ascending aorta measuring 3.70 cm. Venous The inferior vena cava is normal in size and collapses greater than 50% with inspiration. Pericardium/Pleural There is no evidence of pericardial effusion. Prior Study Comparison No prior study available for comparison. Measurements 2D Linear Measurements IVSd: 0.78 0.6-0.9/0.6-1.0 cm LVIDd: 4.01 3.9-5.3/4.2-5.9 cm LVIDd Index: 1.98 2.4-3.2/2.2-3.1 cm/m2 LVIDs: 2.24 2.0-3.6 cm LVPWd: 0.72 0.7-1.1 cm LA Diam: 3.10 2.7-3.8/3.0-4.0 cm LAIDs Index: 1.53 1.5-2.3 cm/m2 LV Mass: 107.39 67-162/88-224 g LV Mass Index: 52.90 43-95/49-115 g/m2 LVOT Diam: 2.00 3.0+(-)1.3 cm 2D Systolic Function EF 4C: 57.60 >55% EF 2C: 58.60 >55% EF BiP: 56.90 >55% Mitral Valve MV Pk E: 0.70 MV PK A: 0.62 MV Decel Time: 178.00 E/A: 1.10 E'Lateral: 8.92 E'Medial: 5.44 E/E' Med: 12.90 E/E' Lat: 7.90 PHT: 52.00 MVA PHT: 4.23 Decel Cass: 3.95 Aortic Valve AoV Pk Juvenal: 1.30 AoV Pk Grad: 7.00 BERENICE: 3.34 LVOT LVOT Pk Juvenal: 1.32 LVOT Mn Juvenal: 0.93 LVOT VTI: 0.26 LVOT Pk Grad: 7.00 LVOT Mn Grad: 4.00 LVOT Diam: 2.00 LVOT Area: 3.14 Diastolic Function MV Pk E: 0.70 MV Pk A: 0.62 E/A: 1.10 E'Medial: 5.44 E/E' Med: 12.90 E' Laterial: 8.92 E/E' Lat: 7.90 Right Ventricle TAPSE (mm): 22.60 TVS' Juvenal: 11.30 Tricuspid Valve RA Press: 3.00 Great Vessels Aorta Sinus of Valsalva: 3.50 2.0-3.5 cm Ao Asc: 3.70 2.1-3.4 cm Ao Arch: 2.90 Pulmonary Veins Pulm Vein S/D 1.40 Pulmonary Valve PV Pk Juvenal: 0.89 Peak PV Grad: 3.00 Updated in Other Vendor System with Status of Final Devan Joe MD electronically signed on 01/30/2024 5:21:31 PM with status of Final
== END ==
LOC: HO.CARD 13:58
PROVIDERS: PCP Family Medicine; Visit Provider Family Medicine
DX: R01.1 Cardiac murmur, unspecified (principal)
CPT/HCPCS: 93306

== ENCOUNTER → 2024-01-30 14:02 | Outpatient (BNV) | payer OTHER, SELFPAY | PROVIDERS: PCP Family Medicine; Visit Provider Internal Medicine Cardiovascular Disease | DX: R01.1 Cardiac murmur, unspecified (principal) | CPT/HCPCS: 93306 ==

== ENCOUNTER 2024-03-20 14:34 | Outpatient (AMB) | payer OTHER, SELFPAY ==
--- NOTE | 2024-03-20 14:40 | A.OFFPC_ITS ---
Vital Signs 03/20/24 14:47 Height 5 ft 9.3 in Weight 193 lb 4 oz BMI 28.3 BP 121/73 Blood Pressure Location Rt brachial Position Sitting Respiration 16 Pulse 98 Pulse Source Pulse Oximeter Temp 98.2 F Temp Source Oral Pulse Oximetry (%) 96 Oxygen Delivery Method Room Air Intake Visit Reasons: f/u elevated LDL, labs Intake Note: patient here for elevated LDL and labs Historiography Professor Required: No Is last menstrual period known: No Post menopausal: No Patient : No Allergies codeine Allergy (Verified 03/20/24 14:43) Vomiting Tobacco use date assessed: 03/20/24 Dental Screening Dental Screen Date: 03/20/24 Did you have a dental visit in the last 12 months?: Yes Did you have a dental problem in the last 6 months where you did not have access to dental care?: No Was dental information given to patient?: Patient has dentist HPI f/u elevated LDL, labs HPI Details 54 y/o female presents to f/u elevated L DL, labs. No recent labs to review. Had an uncharacterized murmur. Echocardiogram 01/30/24 shows: 1. Normal LV ejection fraction of 55-60% 2. Normal cardiac valvular Doppler 3. Mildly dilated ascending aorta at 3.7 cm 4. No gross pericardial effusion [facility] Medical History (Updated 03/20/24 @ 15:21 by Wayne Kennedy MD) GERD (gastroesophageal reflux disease) Surgical History (Updated 08/30/23 @ 15:30 by Elal Dixon RN) History of left oophorectomy History of hip surgery History of ankle surgery Family History Other Mental health disorder Substance abuse Social History (Updated 01/03/24 @ 13:20 by CASSIDY Barcenas) Household Members: Spouse and Other Household Members Other:: My Cat Housing: House Comment: Pt's d/c date will be extended, TBD. 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 1. Little interest or pleasure in doing things: several days 2. Feeling down, depressed, or hopeless: several days 3. Trouble falling or staying asleep, or sleeping too much: several days 4. Feeling tired or having little energy: several days 5. Poor appetite or overeating: several days 6. Feeling bad about yourself - or that you are a failure or have let yourself or your family down: several days 7. Trouble concentrating on things, such as reading the newspaper or watching television: several days 8. Moving or speaking so slowly that other people could have noticed. Or the opposite - being so fidgety or restless that you have been moving around a lot more than usual: not at all 9. Thoughts that you would be better off or of hurting yourself in some way: not at all Total score: 7 Source: Developed by Drs. Ky Charles, Laly Arredondo, Christopher Rob and colleagues, with an educational suyapa from [employer]. Thrive Questionnaire Date Thrive assessed: 03/16/24 I am a: Patient What is your living situation today?: I have a steady place to live Within the past 12 months, did the food you bought not last and you didn't have the money to get more?: Never true Within the past 12 months, did you worry whether your food would run out before you got money to buy more?: Never true Do you have trouble paying for medicines?: No Do you have trouble getting transportation to medical appointments?: No Do you have trouble paying your heating and electricity bill?: No Do you have trouble taking care of your child, family member or friend?: No Do you have trouble with day-to-day activities such as bathing, preparing meals, shopping, managing finances, etc.?: No Are you currently unemployed and looking for a job?: No Are you interested in more education?: Yes Please select the resources that you would like help with: Daily support, Job search/training and Education Currently or been in a relationship where the following occur: No concerns reported THRIVE Score: 0 AUDIT C Alcohol Use Questionnaire (AUDIT-C) 1. How often do you have a drink containing alcohol?: Monthly or less 2. How many drinks containing alcohol do you have on a typical day when you are drinking?: 3 or 4 3. How often do you have six or more drinks on one occasion?: Less than monthly Total Score: 3 JOSE-7 AMB Questionnaire JOSE-7 Date JOSE - 7 assessed: 01/03/24 Feeling nervous, anxious, or on edge: 3 = Nearly every day Not being able to stop or control worryin = Nearly every day Worrying too much about different things: 3 = Nearly every day Trouble relaxin = Nearly every day Being so restless that it is hard to sit still: 0 = Not at all Becoming easily annoyed or irritable: 1 = Several days Feeling afraid as if something awful might happen: 1 = Several days Total JOSE-7 score (0-4 normal; 5-9 mild; 10-14 moderate; 15-21 severe): 14 Source: Developed by Drs. Ky Charles, Laly Arredondo, Christopher Rob and colleagues, with an educational suyapa from [employer]. Review of Systems Const Denies chills, Denies fatigue, Denies fever(s), Denies headache(s) and Denies weakness ENT Denies dizziness and Denies headache(s) Card Denies chest pain, Denies lightheadedness, Denies dyspnea and Denies other (Pal pitations) Resp Denies cough, Denies dyspnea, Denies wheezing and Denies other ( shortness of breath) Musc Denies numbness and Denies tingling Neuro Denies dizziness, Denies headache(s), Denies numbness, Denies tingling, Denies paresthesias and Denies weakness Psych Denies anxiety and Denies depression Endo Denies fatigue Aller/Immun Denies wheezing Physical exam (Primary Care) Vital Signs: Last Vital Signs Temp 98.2 F 03/20/24 14:47 Pulse 98 03/20/24 14:47 Resp 16 03/20/24 14:47 BP 121/73 03/20/24 14:47 Pulse Ox 96 03/20/24 14:47 Oxygen Delivery Method Room Air 03/20/24 14:47 BMI result Body Mass Index 28.3 Tobacco/Smoking Status: Tobacco use Status Tobacco use date assessed 03/20/24 03/20/24 14:50 Patient Tobacco Use Status Never used Tobacco 03/20/24 14:43 e-Cigarette/Vaping Use Never Used 03/20/24 14:43 PHQ-9: PHQ-9 Score PHQ-9: Total score 7 03/20/24 15:00 Thrive Assessment: Date of Thrive Assessment Date Thrive assessed 03/16/24 03/20/24 14:43 Currently or been in a relationship where the following occur: No concerns reported Const General: no acute distress and well developed Nutritional Appearance: well nourished Orientation/consciousness: patient oriented x3 HENMT Head: Yes normocephalic and Yes atraumatic Eyes General: appearance normal, both eyes and all related structures Pupils: Equal, round and reactive pupils present EOM: EOMs intact bilaterally Resp Effort & Inspection: normal respiratory effort Auscultation: clear to auscultation bilaterally Cardio Rate: regular rate Rhythm: regular rhythm Heart sounds: S1 normal heart sound present, S2 normal heart sound present, no gallops, no murmurs and no rubs Neuro General: patient oriented x3 and gait normal Cranial nerves: Yes Equal, round and reactive pupils present Psych Affect: normal affect Coding Level of Care Code Est Pt Level 4 (50246) Diagnoses Ascending aorta dilatation I77.810 Elevated LDL cholesterol level E78.00 Overweight E66.3 Elevated liver enzymes R74.8 Assessment & Plan Assessment & Plan (1) Ascending aorta dilatation: Code(s): I77.810 - Thoracic aortic ectasia Category: Medical Plan: Mild?ascending?aorta?dilatation?seen?on?echocardiogram?after?finding?of?murmur Will?recheck?in?2?years. ?Or?sooner?if?any?changes?auscultation (2) Elevated LDL cholesterol level: Code(s): E78.00 - Pure hypercholesterolemia, unspecified Category: Medical Plan: She?will?recheck?LDL?cholesterol We?can?follow-up?at?next?visit (3) Overweight: Code(s): E66.3 - Overweight Category: Medical Plan: Patient?is?frustrated?regarding?weight?gain. She?notes?that?she?had?gained?considerable?months?weight?on?her?psych?meds?in cluding?lithium?and?mirtazapine. Her?psychiatrist?is?helping her stop These. She?would?like?to?try Mounjaro. Discussed?risks/benefits. ?We?discussed insurance?approval. Will?send?script. (4) Elevated liver enzymes: Code(s): R74.8 - Abnormal levels of other serum enzymes Category: Medical Plan: She?will?get?her?liver?enzymes?rechecked?with?next?blood?draw We?will?follow-up?in?a?month Orders: Orders Lipid Panel Today Z00.00 - Encounter for general adult medical examination without abnormal findings Comprehensive [place]. Panel Fast Today Z00.00 - Encounter for general adult medical examination without abnormal findings Medications: New tirzepatide (Mounjaro) for 4 weeks 2.5 mg (0.5 mL) subcut QWEEK 28 days 2 mL 2RF E66.9 - Obesity, unspecified
[2024-03-20 14:47] VITALS: BP 121/73; PULSE 98; RESP 16; TEMP 36.8; O2SAT 96; BMI 28.3
--- OUTSIDE RECORDS SUMMARY | 2024-03-20 16:37 | XMS_ITS ---
Author Name [facility] Organization Unknown History of Medication Use Medication Directions Dispensed Refills Start Date End Date [facility] gabapentin 600 mg tablet TAKE 1 TO 2 TABLETS BY MOUTH EVERY EVENING AT BEDTIME NEEDED FOR INSOMNIA 10/13/2023 active olanzapine 10/13/2023 completed famotidine 40 mg tablet TAKE 1 TABLET BY MOUTH AT BEDTIME NEEDED FOR REFULX 10/13/2023 completed duloxetine 20 mg capsule,delayed release TAKE 1 CAPSULE BY MOUTH TWICE A DAY 10/13/2023 completed Trintellix 5 mg tablet TAKE 1 TABLET BY MOUTH EVERY DAY 10/13/2023 completed gabapentin 300 mg capsule TAKE 1 CAPSULE 3 TIMES A DAY DIRECTED NEEDED 10/13/2023 active aripiprazole 2 mg tablet TAKE 2 TABLETS BY MOUTH DAILY 10/13/2023 completed alprazolam 0.25 mg tablet TAKE 1 TABLET BY MOUTH TWICE A DAY NEEDED 10/13/2023 completed lamotrigine 100 mg tablet 10/13/2023 completed vilazodone 10 mg tablet TAKE 1 TABLET BY MOUTH EVERY DAY 10/13/2023 completed lisdexamfetamine 20 mg capsule TAKE 1 CAPSULE BY MOUTH EVERY DAY IN THE MORNING 10/13/2023 active lamotrigine ER 100 mg tablet,extended release 24 hr TAKE 1 TABLET BY MOUTH EVERY DAY 10/13/2023 completed lamotrigine ER 50 mg tablet,extended release 24 hr TAKE 1 TABLET BY MOUTH EVERY DAY 10/13/2023 completed clonazepam 0.5 mg tablet TAKE 1 TABLET BY MOUTH EVERY 12 HOURS NEEDED FOR ANXIETY 10/13/2023 active amoxicillin 875 mg tablet TAKE 1 TABLET BY MOUTH EVERY 12 HOURS FOR 7 DAYS 10/13/2023 completed zolpidem 10 mg tablet TAKE ONE TABLET BY MOUTH BEFORE BED NEEDED 10/13/2023 active buspirone 5 mg tablet TAKE 1 TABLET BY MOUTH TWICE A DAY 10/13/2023 completed lurasidone 20 mg tablet TAKE 1 TABLET BY MOUTH EVERYDAY AT BEDTIME 10/13/2023 active nabumetone 500 mg tablet TAKE 1 TABLET BY MOUTH TWICE A DAY 10/13/2023 completed prazosin 1 mg capsule TAKE ONE TO THREE CAPSULES BY MOUTH 2 TIMES A DAY NEEDED PTSD SYMPTOMS. 10/13/2023 active benzonatate 200 mg capsule TAKE ONE CAPSULE BY MOUTH EVERY 8 HOURS NEEDED FOR COUGH 10/13/2023 completed lithium carbonate ER 300 mg tablet,extended release TAKE ONE CAP BY MOUTH TWICE A DAY 10/13/2023 active propranolol 20 mg tablet TAKE 1 TABLET BY MOUTH TWICE A DAY 10/13/2023 completed estradiol 0.025 mg/24 hr semiweekly transdermal patch 10/13/2023 active vilazodone 20 mg tablet TAKE 1 TABLET BY MOUTH EVERY DAY WITH 10MG 10/13/2023 completed bupropion HCl SR 100 mg tablet,12 hr sustained-release TAKE 1 TABLET (100 MG) ORALLY EVERY MORNING 10/13/2023 completed mirtazapine 30 mg tablet TAKE A 1/2 TABLET BY MOUTH AT BEDTIME X1 WEEK THEN INCREASE TO 1 TABLET AT BEDTIME AFTER THAT 10/13/2023 active fluticasone propionate 50 mcg/actuation nasal spray,suspension USE 1 SPRAY INTO EACH NOSTRIL EVERY 12 HOURS 10/13/2023 completed estradiol 0.0375 mg/24 hr semiweekly transdermal patch PLEASE SEE ATTACHED FOR DETAILED DIRECTIONS 10/13/2023 active sertraline 50 mg tablet TAKE 1/2 TABLET BY MOUTH DAILY FOR 6 DAYS,THEN INCREASE TO 1 FULL TABLET DAILY THEREAFTER 10/13/2023 completed Provera 2.5 mg tablet Take 1 tablet every day by oral route. 10/13/2023 active aripiprazole 5 mg tablet TAKE A 1/2 TABLET BY MOUTH DAILY AT BEDTIME X2 DAYS THEN INCREASE TO 1 TABLET AT BEDTIME AFTER THAT 10/13/2023 active doxycycline hyclate 100 mg tablet Take 1 tablet twice a day by oral route for 10 days. 10/13/2023 completed Provera 2.5 mg tablet 10/13/2023 active hydroxyzine HCl 25 mg tablet TAKE 1-2 TABLETS BY MOUTH UP TO FOUR TIMES A DAY. 10/13/2023 active guanfacine ER 1 mg tablet,extended release 24 hr TAKE 1-2 TABLETS BY MOUTH EVERY EVENING 10/13/2023 active Vitamin D3 125 mcg (5,000 unit) tablet TAKE 1 TABLET BY MOUTH EVERY DAY 10/13/2023 active progesterone micronized 100 mg capsule 100 MG ORALLY EVERY MORNING FOR 21 DAYS OFF 7 DAYS REPEAT CYCLE 10/13/2023 active Viibryd 10/13/2023 completed quetiapine 25 mg tablet TAKE 3 TABLETS ONCE DAILY 10/13/2023 completed quetiapine 50 mg tablet TAKE 1-2 TABS BY MOUTH DAILY NEEDED FOR SLEEP 10/13/2023 completed mirtazapine 7.5 mg tablet TAKE 1 TABLET BY MOUTH EVERY DAY 10/13/2023 active diazepam 5 mg tablet TAKE 1 TABLET BY MOUTH TWICE A DAY NEEDED 10/13/2023 completed lamotrigine 200 mg tablet TAKE 1 TABLET BY MOUTH EVERY DAY 10/13/2023 completed omeprazole 20 mg capsule,delayed release TAKE ONE CAPSULE BY MOUTH DAILY NEEDED FOR REFLUX 10/13/2023 completed famotidine 20 mg tablet TAKE 1 TABLET BY MOUTH EVERY DAY 10/13/2023 active mirtazapine 45 mg tablet TAKE 1 TABLET BY MOUTH EVERYDAY AT BEDTIME 10/13/2023 active lamotrigine 150 mg tablet TAKE 1 TABLET BY MOUTH DAILY IN EVENING 10/13/2023 completed tramadol 50 mg tablet TAKE 1/2 TABLET BY MOUTH EVERY 6 HOURS NEEDED FOR SEVERE PAIN. CAN TAKE WITH TYLENOL. 10/13/2023 completed Denta 5000 Plus 1.1 % cream PLEASE SEE ATTACHED FOR DETAILED DIRECTIONS 10/13/2023 active estradiol 0.025 mg/24 hr semiweekly transdermal patch Apply 1 patch twice a week by transdermal route. 10/13/2023 active ergocalciferol (vitamin D2) 1,250 mcg (50,000 unit) capsule TAKE 1 CAPSULE BY MOUTH EVERY WEEK 10/13/2023 completed Lo Loestrin Fe 1 mg-10 mcg (24)/10 mcg (2) tablet TAKE 1 TABLET BY MOUTH EVERY DAY 10/13/2023 completed vilazodone 40 mg tablet TAKE 1 TABLET BY MOUTH EVERY DAY 10/13/2023 completed olanzapine 2.5 mg tablet TAKE ONE TAB BY MOUTH DAILY BEFORE BED. 10/13/2023 completed lamotrigine 25 mg tablet TAKE 1 TABLET BY MOUTH DAILY X2 WEEKS, 2 TABS DAILY X2 WEEKS, THEN 3 TABLETS DAILY 10/13/2023 completed escitalopram 5 mg tablet TAKE 1/2 TABLET BY MOUTH DAILY FOR 6 DAYS THEN INCREASE TO 1 TABLET DAILY. 10/13/2023 completed lamotrigine 100 mg tablet lamotrigine 100 mg tablet 07/05/2022 completed alprazolam 0.25 mg tablet TAKE 1 TABLET BY MOUTH TWICE A DAY NEEDED TAKE 1 TABLET BY MOUTH TWICE A DAY NEEDED 07/05/2022 completed famotidine 40 mg tablet TAKE ONE TABLET BY MOUTH AT BEDTIME TAKE ONE TABLET BY MOUTH AT BEDTIME 07/06/2022 completed Lo Loestrin Fe 1 mg-10 mcg (24)/10 mcg (2) tablet Take 1 tablet every day by oral route. Take 1 tablet every day by oral route. 07/06/2022 completed famotidine 40 mg tablet TAKE ONE TABLET BY MOUTH AT BEDTIME TAKE ONE TABLET BY MOUTH AT BEDTIME 07/06/2022 completed zolpidem 10 mg tablet TAKE ONE TABLET BY MOUTH BEFORE BED NEEDED TAKE ONE TABLET BY MOUTH BEFORE BED NEEDED 07/05/2022 completed gabapentin 300 mg capsule TAKE 1 CAPSULE BY MOUTH THREE TIMES A DAY TAKE 1 CAPSULE BY MOUTH THREE TIMES A DAY 07/06/2022 completed None recorded. (No additional sig information) 07/05/2022 completed hydroxyzine HCl 25 mg tablet TAKE 1-2 TABLETS BY MOUTH UP TO FOUR TIMES A DAY. TAKE 1-2 TABLETS BY MOUTH UP TO FOUR TIMES A DAY. 07/05/2022 completed aripiprazole 2 mg tablet TAKE 2 TABLETS BY MOUTH DAILY TAKE 2 TABLETS BY MOUTH DAILY 07/05/2022 completed Allergies Allergen Reaction Severity Comment Documented Date Source Statu s SUBSTANCE WITH MORPHINAN STRUCTURE AND OPIOID RECEPTOR AGONIST MECHANISM OF ACTION (SUBSTANCE) [facility] act ely Problems Problem Status Onset Date Problem Type Date of Resoluti on Source Arthritis active 2022-06-27 ProblemAct [facility] Anxiety active 2022-06-27 ProblemAct [facility] Immunizations Vaccine Date Source Lot Number Status Influenza, split virus, quadrivalent, PF 02/22/2022 [facility] H [id number] completed
--- OUTSIDE RECORDS SUMMARY | 2024-03-20 16:37 | XMS_ITS | Continuity of Care Document ---
Author Organization [facility] Address [address] [address] Phone Care Team Providers Care [employer] Name Role Phone Valarie Fisher MD Unavailable Unavailable Allergies, Adverse Reactions, Alerts Substance Reaction Status Criticality hydrocodone Active No Information HYDROCODONE BITARTRATE Active No In formation acetaminophen Active No Information Medications Medication Instructions Dosage Effective Dates (start - stop) Status Comments prednisone 20 mg tablet Take 1 every 12 hr. for 3 days, then 1 tablet daily for 3 days. - Active Augmentin 875 mg-125 mg tablet take 1 tablet by oral route every 12 hours - Active fluticasone 50 mcg/actuation nasal spray,suspension inhale 2 spray by intranasal route every day in each nostril 100 MCG - Active Xyzal 5 mg tablet take 1 tablet by oral route every day in the evening 5 MG - Active Claritin 10 mg tablet take 1 tablet by oral route every day 10 MG - Active Sudafed 12 Hour 120 mg tablet,extended release take 1 tablet by oral route every 12 hours 120 MG - Active Ambien 10 mg tablet take 1 tablet as needed - Active Lamictal 150 mg tablet take 2 tablet by oral route 2 times every day 300 MG - Active WELLBUTRIN (unknown strength) take 1 tablet as needed Not Available - No Longer Active Procedures Procedure Date OFFICE/OUTPATIENT VISIT, NEW PERCUT ALLERGY SKIN TESTS ID ALLERGY TEST OFFICE/OUTPATIENT VISIT, [facility] PERCUT ALLERGY SKIN TESTS ID ALLERGY TEST Advance Directives Directive Yes / No Effective Date File Name No Information Encounters Encounter Description Practice Location Reason(s) For Visit Diagnoses Date Provider Providers Copied on Encounter OFFICE/OUTPAT IENT VISIT, [facility], [address], [id number], tel:[phone] [place] allergy symptoms (chief complaint)r eaction, stinging insect (chief complaint) Chronic rhinitisToxic effect of venom of bees, accidental, subsAllergic rhinitis due to pollenAllergic rhinitis due to animal (cat) (dog) hair and dander Phillip Sheppard. [address] [place] [address] [facility] [place], [place], [id number] , . tel:[phone] OFFICE/OUTPAT IENT VISIT, [facility] [place] [facility], [address], [id number], tel:[phone] [place] allergy symptoms (chief complaint) Chronic rhinitisToxic effect of venom of bees, accidental, subs Linda Rider. [address] [place] [address] [place], [address], . tel:[phone] Family History Family Member Type Diagnosis Age At Onset Mother Problem (finding) Eczema Mother Problem (finding) Allergies Mother Problem (finding) asthma Paternal grandmother Problem (finding) Eczema Immunizations Vaccine Date Status Comments SARS-COV-2 (COVID-19) vaccin e, mRNA, spike protein, LNP, preservative free, 30 mcg/0.3mL dose (Pfizer) administered Source: Other Provider SARS-COV-2 (COVID-19) vaccin e, mRNA, spike protein, LNP, preservative free, 30 mcg/0.3mL dose (Pfizer) administered Source: Other Provider Influenza 3 years or older administered S ource: Other Provider Payers Payer name Insurance type Covered libertarian ID Cooper jennings(s) [facility] [id number] Social History Type Description Quantity Date Captured Comments Alcohol Use Details Unknown Caffeine Use Details Unknown Tobacco Use Status Never smoked tobacco 2020 Smoking Status Never smoker Non-Smoking Tobacco Use Details : No Details Available : No Details Available Sex Female Gender Identity Female Vital Signs Date / Time: Height Weight BMI Pulse Rate Blood Pressure Temperature Respiratory Rate Body Surface Area Head Circumference Head Circ. Percentile Wt./Sukhdev. Percentile BMI percentile Pulse Ox Inhaled Ox 3:16 PM 69.00 in 77.111 kg (170.00 lbs) 25.1 0 kg/m eter (2) 70 /min 118/72 mm[Hg] 98.00 F 16 /min 99 % Chief Complaint And Reason For Visit From encounter dated '12/28/2020 15:00'. allergy symptoms (chief complaint). Description: The patient is also experiencing nasal congestion,nasal drainage and post nasal drainage. The patient denies cough, ear pain, headache, hoarseness, nausea and tearing. reaction, stinging insect (chief complaint). Description: She has had a bee sting when she was abotu 13 yrs of age and had large local swelling of her leg crossing 2 joint lines. No other systemic symptoms. No SOA, altered sensorium. Reason For Referral Reason For Referral No Information History Of Present Illness Encounter Date Complaint History Of Prese nt Illness allergy symptoms The patient is also experiencing nasal congestion, nasal drainage and post nasal drainage. The patient denies cough, ear pain, headache, hoarseness, nausea and tearing. reaction, stinging insect She biswas s had a bee sting when she was abotu 13 yrs of age and had large local swelling of her leg crossing 2 joint lines. No other systemic symptoms. No SOA, altered sensorium. allergy symptoms (comments) recu rring sore throat and eyes burn and some tearing and her face feels hollow constant for atleast 1 month with intermittent such symptoms since 2010 when she moved from [facility] to [place], [place]. She reports she has 1 cat but she has had cats her entire life. She used to live in the [place] area and she felt well when she lived there. She denies a prior diagnosis of asthma. 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 has tried and failed claritin, xyzal, flonase and sudafed. She cannot say that these medications help but withdrawing these for todays' OV ws tough. allergy symptoms (comments) Odalis is a 46 year old female who presents for new patient evaluation secondary to allergy symptoms. Patient states that she has a longstanding history of seasonal allergy symptoms starting in childhood. She was allergy injections during high school. She moved to [place] 6 years ago and feels that her symptoms are worse each year, specifically this month each year. She has runny nose, and drainage on a year-round basis. She has sore throat and itchy eyes, and alternates between congestion and drainage. She uses Nabila, but this does not provide complete relief. She has never used a nasal spray. She also reports a history of bee sting in high school that caused significant swelling of the leg. No diffuse hives, or respiratory symptoms are recalled. She carries an EpiPen for this allergy. She has never had venom testing. She also reports a history of mild asthma, and has outgrown these symptoms. She has been off AH x 5 days for skin testing. allergy symptoms The patient is also experiencing headache, nasal drainage and post nasal drainage. The patient denies cough, ear pain, hoarseness, nasal congestion, nausea and tearing. Functional Status Date Functional Assessmen t No Information Instructions Date Instruction Additional Infor elsa Keep animals out of bedroom. [place] frequently. HEPA filter for bedroom. Related to Allergic rhinitis due to animal (cat) (dog) hair and dander Pt with a modest kaur unt of aeroallergen sensitization as noted 12/28/20 with sensitization to tree, grass, weed, mold, cockroach, cat, dog and dust mites. Pt has poor control of rhinitis despite multiple medication trials including saline rinses, oral antihistamines and nasal steroids.Pt may benefit from aeroallergen SCIT or allergy shots eventually but I am concerned that she may in fact have a chronic sinusitis that is driving her symptoms. Will treat for this first.We discussed the risk and benefit of subcutaneous allergen immunotherapy and I recommend this therapy to help modify disease and reduce medication use. Risks include allergic reactions and the patient understands the need to wait 30 minutes in the office after every injection. Benefits include the potential to decrease symptoms of allergic rhinitis, asthma and decrease the chance of new sensitization. This may also help to reduce medication, improve symptom control and modify allergic disease. The goal is to remain on allergen immunotherapy for 3-5 years.Begin Prednisone for 6 days and Augmentin 875 mg po BID for 14 days.Pt to call back with a clinical update in 11-12 days and will refer to ENT if persistent symptoms of rhinosinusitis. Related to Chronic rhinitis Large local reaction without systemic symptoms does not suggest increased risk for systemic anaphylaxis with subsequent stings. Related to Toxic effect of venom of bees, accidental, subs AVOIDANCE MEASURES:A void outdoor activities in the morning. Stay indoors during humid and windy days. Wear a protective mask when mowing grass or raking leaves. Do not hang sheets or clothing outside to dry. AVOIDANCE MEASURES:Used dust mite barrier covers (pore size <10 microns diameter) for all pillows, mattress and box spring. Wash bedding in hot water and tumble dry high heat. Remove stuffed animals or periodically place them in plastic bags and freeze overnight. Remove carpet if possible and replace with solid surface or hardwoods. Decrease indoor humidity to under 50%. Vacuum once a week, ideally with a HEPA vacuum.Resume Flonase 1-2 SEN once daily. HOLD if epistaxis. Related to Allergic rhinitis due to pollen -Obtain Hymenoptera panel via [facility] for evaluation of IgE-mediated venom hypersensitivity given history of swelling. If negative, return for skin testing. --Continue to keep EpiPen available in case of severe reaction. Related to Toxic effect of venom of bees, accidental, subs --No IgE-enviromenta l sensitizations identified today which may be contributing to her allergy symptoms. Her history is highly suggestive, and I have recommended additional evaluation with Zone 3 aeroallergen panel via [facility] panel and she is in agree with this. If negative, she has non-allergic rhinitis, with vasomotor triggerts. --Start first-line treatment with Flonase 2 sprays EN daily for AR and ELOISA, and add Xyzal 5 mg daily for the drainage and itching components. --Once lab results available, will determine if patient is a candidate for re-initiation of allergy shots. Related to Chronic rhinitis Review and provide i nhalant avoidance measures handouts. Related to Chronic rhinitis Review proper techni que for using nasal sprays. Related to Chronic rhinitis Assessments Type Assessment Date assessment Chronic rhinitis assessment Toxic effect of venom of bees, a ccidental, subs assessment Allergic rhinitis due to pollen assessment Allergic rhinitis due to animal (cat) (dog) hair and dander Mental Status Date Cognitive Assessment Orientation - [place] ed to time, place, person, situation. Patient Care Teams Name Effective Dates (start - stop) Status Members No Information
== END 2024-03-20 15:18 | disposition home or self-care (01) ==
PROVIDERS: Visit Provider Family Medicine
DX: I77.810 Thoracic aortic ectasia (principal); E78.00 Pure hypercholesterolemia, unspecified; E66.3 Overweight; R74.8 Abnormal levels of other serum enzymes

== ENCOUNTER → 2024-03-20 14:34 | Outpatient (BNVA) | payer OTHER, SELFPAY | PROVIDERS: Visit Provider Family Medicine ==